=== PATIENT | female | born 1965 | race Caucasian/White ===

== ENCOUNTER → 2019-12-18 10:15 | Outpatient (CLI) | payer OTHER, SELFPAY ==
--- NOTE | ~2019-12-18 | XR_ITS ---
XR foot LT min 3V 12/18/2019 11:24 Indication: Left foot pain Procedure: 4 views left foot Comparison: No prior studies for comparison. Findings: Small ossific density adjacent to the base of the third proximal phalanx, consistent with a ge-indeterminate avulsion fracture. Lisfranc joint intact. No significant soft tissue abnormality. Sm all degenerative calcaneal enthesophyte. Impression: 1: Ossific density adjacent to the base of the third proximal phalanx, consistent with age-indetermin ate avulsion fracture. Reviewed, dictated and finalized at location A. Impression: 1: Ossific density adjacent to the base of the third proximal phalanx, consiste nt with age-indeterminate avulsion fracture.
== END ==
PROVIDERS: PCP Family Medicine; Visit Provider Family Medicine
DX: M79.672 Pain in left foot (principal); R93.6 Abnormal findings on diagnostic imaging of limbs
CPT/HCPCS: 73630

== ENCOUNTER 2020-10-26 12:03 | Outpatient (CLI) | payer OTHER, SELFPAY ==
--- NOTE | ~2020-10-26 | MMUS_ITS ---
EXAMINATION: MM diagnostic ben BI w nina, US breast LT limited HISTORY: Chest tightness and pulling. No palpable lump. TECHNIQUE: Additional 3-D tomosynthesis images of the breasts were performed and synthetic 2-D images were generated. CAD analysis was submitted and interpreted. High resolution Limited left breast ultr asound was performed. COMPARISON: Comparison to multiple prior studies sequentially, with oldest reviewed study dated 05/10. BREAST PARENCHYMAL COMPOSITION: Breast composed of scattered areas of fibroglandular density. FINDINGS: MAMMOGRAPHIC FINDINGS: There are no suspicious masses, calcifications or architectural distortion in the left breast to sugg est malignancy. ULTRASOUND: Limited left breast ultrasound: Normal heterogeneous echotexture without focal solid or cystic mass. Mildly prominent ducts are present at the 3:00 position. IMPRESSION: 1. No evidence for malignancy in the left breast. 2. Routine yearly screening mammogram and regular clinical breast examination are recommended. BI-RADS Category 2: Benign finding(s). Reviewed, dictated and finalized at location A. IMPRESSION: 1. No evidence for malignancy in the left breast. 2. Routine yearly screening mammogram and regular clinical breast examination a re recommended. BI-RADS Category 2: Benign finding(s).
== END 2020-10-26 12:04 | disposition home or self-care (01) ==
LOC: ANHIMG 12:04
PROVIDERS: PCP Family Medicine; Visit Provider Family Medicine
DX: N64.89 Other specified disorders of breast (principal)
CPT/HCPCS: 76642; 77062; 77066; G0279

== ENCOUNTER 2022-06-15 16:12 | Outpatient (CLI) | payer OTHER, SELFPAY ==
--- NOTE | ~2022-06-15 | MM_ITS ---
EXAMINATION: MM screening [facility] BI w nina HISTORY: Screening TECHNIQUE: Craniocaudal and mediolateral oblique 3-D tomosynthesis images were obtained and synthetic 2-D images were generated. CAD analysis was submitted and interpreted. COMPARISON: Comparison to multiple prior studies sequentially, with oldest reviewed study dated 03/2015. BREAST PARENCHYMAL COMPOSITION: There are scattered areas of fibroglandular density. FINDINGS: There is no evidence of suspicious mass, calcification, or architectural distortion to sugg est malignancy in either breast. There has been no suspicious interval change. IMPRESSION: 1. No mammographic evidence of malignancy. 2. Recommend routine screening mammography in one year. BI-RADS Category 1: Negative Reviewed, dictated and finalized at location A.
== END 2022-06-15 16:13 | disposition home or self-care (01) ==
LOC: ANHIMG 16:13
PROVIDERS: PCP Family Medicine; Visit Provider Family Medicine
DX: Z12.31 Encounter for screening mammogram for malignant neoplasm of breast (principal)
CPT/HCPCS: 77063; 77067

== ENCOUNTER 2023-06-29 22:04 | Emergency (ER) | payer OTHER, SELFPAY ==
[2023-06-29 22:14] VITALS: BP 165/64; PULSE 69; RESP 20; TEMP 35.9; O2SAT 97
[2023-06-29] MEDS: TETRACAINE HCL 0.5% OPHTH SOLN 4 ML BTL 1 DROP EACH EYE (22:44)
[2023-06-29] MEDS: FLUORESCEIN SOD 1 MG/STRIP EACH EYE (22:44)
--- NOTE | 2023-06-29 23:16 | ED.EYEPROB ---
HPI - Eye Problem General Chief complaint: Eye Problems Stated complaint: eye complaint Time Seen by Provider: 06/29/23 22:37 History of Present Illness HPI Narrative: Patient is a 58-year-old female who presents to the emergency department this evening complaining of foreign body in her left. Patient states that she can not see that there is a black spot in her left eye and she tried to get it out using a Q-tip but was unsuccessful. Patient admits that her eye feels irritated and is red. Patient does not wear any contact lens and is currently denying any decrease any vision of her left. She is currently denying any additional symptoms at this time. There are no other modifying, alleviating, or precipitating factors. Related Data Home Medications Medication Instructions Recorded Confirmed multivitamin 1 tablet PO DAILY 10/18/19 04/20/23 saxagliptin 5 mg-metformin ER 500 tablet PO 04/20/23 04/20/23 mg tablet,extend release 24hr mp (Kombiglyze XR) Allergies Allergy/AdvReac Type Severity Reaction Status Date / Time erythromycin base Allergy Unknown Skin Verified 04/20/23 15:08 Reaction Penicillins Allergy Unknown Skin Verified 04/20/23 15:08 Reaction Review of Systems Review of Systems: All systems are reviewed and are negative unless stated otherwise in the HPI. [facility] Past Medical History Medical History Menopause Family History Family History Grandparent Diabetes mellitus Mother Hypertension Cerebrovascular accident Sibling Hypertension Other Family history of malignant neoplasm of urinary bladder Malignant neoplasm of prostate Social History Social History Smoking status: Never smoker Alcohol intake: current Lack of Transportation: No Lack of Food: Never True Current Housing: I Have Housing Concerned About Future Housing: No Difficulty Paying Gas/Electric Bills: No Difficulty Paying for Meds: No Currently Unemployed: No Education: High School Diploma/GED Difficulty w/ Childcare or Family Care: No Exam Narrative: General: Alert, awake, afebrile, in no acute distress. HEENT: Left eye conjunctival injection, small black foreign body was removed from the patient's eye, I was then stained with fluoresce and under Wood's lamp which revealed a small corneal abrasion around the 6 o'clock position, no sidel sign, no proptosis or chemosis, intact extraocular movements without any pain with movement. Cardiovascular: Regular rate and rhythm, no murmurs, rubs or gallops, no peripheral edema. Respiratory: Clear to auscultation bilaterally, no tachypnea, no wheezing, no rhonchi, no rubs, no respiratory distress. Abdomen: Soft, nontender, nondistended, no rebound, no guarding, no peritoneal signs. Musculoskeletal: No joint swelling or deformity, normal muscle tone. Skin: No rashes or petechia, no signs of infection. Psychiatric: Alert and oriented, normal behavior and judgment for situation. Neurological: Alert and oriented to person, place, and time. Follows all commands. No focal deficits, speech is clear and fluent. Course Vital Signs Vital signs: Vital Signs Temperature 96.7 F L 06/29/23 22:14 Pulse Rate 69 06/29/23 22:14 Respiratory Rate 20 06/29/23 22:14 Blood Pressure 165/64 H 06/29/23 22:14 Pulse Oximetry 97 06/29/23 22:14 Oxygen Delivery Room Air 06/29/23 22:14 Temperature 96.7 F L 06/29/23 22:14 Pulse Rate 69 06/29/23 22:14 Respiratory Rate 20 06/29/23 22:14 Blood Pressure 165/64 H 06/29/23 22:14 Pulse Oximetry 97 06/29/23 22:14 Oxygen Delivery Room Air 06/29/23 22:14 MDM - Eye Problem MDM Narrative Medical decision making narrative: The patient was evaluated by myself in the emergency department. History is obtained from patient who
== END 2023-06-29 23:30 | disposition home or self-care (01) ==
PROVIDERS: Emergency Provider Emergency Medicine; PCP Family Medicine
DX: T15.02XA Foreign body in cornea, left eye, initial encounter (principal); W44.9XXA Unspecified foreign body entering into or through a natural orifice, initial encounter
CPT/HCPCS: 65220; 99283

== ENCOUNTER → 2024-02-05 12:02 | Outpatient (REF) | payer OTHER, SELFPAY | LOC: ANHLAB 12:02 | PROVIDERS: PCP Family Medicine; Visit Provider Physician Assistant Surgical | DX: D03.9 Melanoma in situ, unspecified (principal) | CPT/HCPCS: 88305 ==

== ENCOUNTER 2024-02-26 15:44 | Outpatient (CLI) | payer OTHER, SELFPAY ==
--- NOTE | ~2024-02-26 | MM_ITS ---
EXAMINATION: MM screening ben BI w nina HISTORY: Screening TECHNIQUE: Craniocaudal and mediolateral oblique 3-D tomosynthesis images were obtained and synthetic 2-D images were generated. CAD analysis was submitted and interpreted. COMPARISON: Comparison to multiple prior studies sequentially, with oldest reviewed study dated 03/2015. BREAST PARENCHYMAL COMPOSITION: Not dense: There are scattered areas of fibroglandular density. FINDINGS: There is no evidence of suspicious mass, calcification, or architectural distortion to sugg est malignancy in either breast. There has been no suspicious interval change. IMPRESSION: 1. No mammographic evidence of malignancy. 2. Recommend routine screening mammography in one year. BI-RADS Category 1: Negative Reviewed, dictated and finalized at location B. NG DIRECTOR
== END 2024-02-26 15:45 | disposition home or self-care (01) ==
LOC: ANHIMG 15:45
PROVIDERS: PCP Family Medicine; Visit Provider Family Medicine
DX: Z12.31 Encounter for screening mammogram for malignant neoplasm of breast (principal)
CPT/HCPCS: 77063; 77067

== ENCOUNTER 2025-03-17 14:03 | Outpatient (CLI) | payer OTHER, SELFPAY ==
--- NOTE | ~2025-03-17 | MM_ITS ---
EXAMINATION: MM screening ben BI w nina HISTORY: Screening. TECHNIQUE: Craniocaudal and mediolateral oblique 3-D tomosynthesis images were obtained and synthetic 2-D images were generated. CAD analysis was submitted and interpreted. COMPARISON: 2023, 2022, and 2020. BREAST PARENCHYMAL COMPOSITION: Not Dense: There are scattered areas of fibroglandular tissue FINDINGS: No suspicious masses are seen. There are no suspicious calcifications. No unexplained architectural distortion is seen. There are no skin or nipple abnormalities identified. There is no adenopathy seen on the images submitted. IMPRESSION: No mammographic evidence to suggest malignancy is seen. The patient may return to screening mammography as per ACR guidelines. BI-RADS 1 - Negative. Reviewed, dictated and finalized at location A. TRE DIRECTOR
== END 2025-03-17 14:04 | disposition home or self-care (01) ==
LOC: ANHFOHIMG 14:04
PROVIDERS: PCP Family Medicine; Visit Provider Family Medicine
DX: Z12.31 Encounter for screening mammogram for malignant neoplasm of breast (principal)
CPT/HCPCS: 77063; 77067